=== PATIENT | male | born 1990 | race Caucasian/White ===

== ENCOUNTER → 2019-06-11 | Outpatient (CLI) | payer OTHER ==
--- NOTE | 2019-06-11 08:49 | REP ---
Clinical: Trauma. Possible biceps tendon tear. Technique: Real time ruano scale ultrasound examination using linear high frequency transducer. Findings: Directed ultrasound examination along the left upper extremity demonstrates normal appearance to the biceps muscle and tendon without obvious tear or fluid collection. Further evaluation in the region of pain demonstrates a somewhat irregular hyperechoic area within the proximal flexor digitorum superficialis muscle which may represent small intramuscular injury/hematoma. Impression: 1. Normal appearance of the biceps and tendon. 2. Small area of echogenicity in the proximal portion of the forearm involving the flexor digitorum superficialis which may represent small intramuscular injury/hematoma. Electronically Signed by Randy Matthews MD 06/11/2019 08:41 A
== END ==
LOC: M RAD 07:27
PROVIDERS: ATTEND Physician Assistant Medical
DX: S46.212A Strain of muscle, fascia and tendon of other parts of biceps, left arm, initial encounter (principal); W18.30XA Fall on same level, unspecified, initial encounter; Y92.009 Unspecified place in unspecified non-institutional (private) residence as the place of occurrence of the external cause